=== PATIENT | female | born 1965 | race Caucasian/White ===

== ENCOUNTER 2021-06-26 16:15 | Emergency (ER) | payer OTHER, SELFPAY ==
--- NOTE | ~2021-06-26 | XR_ITS ---
EXAMINATION: XR chest 2V DATE: 06/26/2021 16:48 INDICATION: Weakness and dizziness. TECHNIQUE: Frontal and lateral views of the chest were obtained. COMPARISON: Chest 2 views 03/14/2017 FINDINGS: The chest demonstrates clear lungs without pneumonia, pleural effusion, or pneumothorax. Th e heart size is normal. IMPRESSION: 1. No acute cardiopulmonary disease. Reviewed, dictated and finalized at location A.
--- NOTE | 2021-06-26 16:16 | ECG_ITS ---
Measurements Intervals [place] Rate: 63 P: 66 TN: 137 QRS: 14 QRSD: 89 T: 40 QT: 407 QTc: 418 Interpretive Statements SINUS RHYTHM POSSIBLE LEFT ATRIAL ENLARGEMENT LOW QRS VOLTAGE IN PRECORDIAL LEADS BASELINE ARTIFACT- I, III, AVR, AVL, AVF, V3 BORDERLINE ECG Electronically Signed On 06-26-2021 16:39:44 CDT by Eloy Nguyen D.O.
[2021-06-26 16:33] VITALS: BP 143/85; PULSE 69; RESP 18; TEMP 36.5; O2SAT 100
[2021-06-26 16:38] LABS: Basophils Percent Auto 0.4 % (0.2-1.2); Eosinophils Absolute Auto 0.1 K/mm3 (0-0.3); Eosinophils Percent Auto 1.5 % (0-4.4); Hematocrit 37.7 % (37.0-47.0); Hemoglobin 12.6 g/dL (12.0-15.0); Immature Granulocyte Absolute 0.02 K/mm3 (0.00-0.031); Immature Granulocyte Percent A 0.3 % (0-0.5); Lymphocytes Absolute Auto 2.03 K/mm3 (0.9-3.2); Lymphocytes Percent Auto 28.4 % (18.3-44.2); Mean Corpuscular HGB Conc 33.4 g/dl (32-36); Mean Corpuscular Hemoglobin 30.2 pg (26-34); Mean Corpuscular Volume 90.4 fl (80-100); Mean Platelet Volume 10.9 fl (7.4-10.4); Monocytes Absolute Auto 0.4 K/mm3 (0.1-0.6); Monocytes Percent Auto 6.2 % (2.6-8.5); Neutrophils Absolute Auto 4.5 K/mm3 (1.3-6.7); Neutrophils Percent Auto 63.2 % (45.5-73.1); Platelet Count Result 277 k/mm3 (150-375); Red Blood Count 4.17 M/mm3 (4.2-5.4); Red Cell Distribution Width 11.9 % (11.5-14.5); White Blood Count 7.2 K/mm3 (4.5-10.0)
[2021-06-26 16:50] LABS: Alanine Aminotransferase 27 U/L (4-35); Albumin Level 4.3 g/dL (3.5-5.1); Alkaline Phosphatase 62 U/L (38-126); Anion Gap 7 mmol/L (8-16); Aspartate Amino Transferase 31 U/L (14-36); Bilirubin,Total 0.3 mg/dL (0.2-1.3); Blood Urea Nitrogen 14 mg/dL (7-17); Calcium 9.2 mg/dL (8.4-10.2); Carbon Dioxide 27 mmol/L (22-30); Chloride 102 mmol/L (98-107); Estimated CRCL calculation 65 ml/min; Estimated Glomerular Filt Rate > 60; Glucose 110 mg/dL (65-110); Sodium 136 mmol/L (137-145)
--- NOTE | 2021-06-26 18:26 | PC.NURSE ---
THIS RN INTO PTS ROOM TO START IV. PT STATES SHE DOESNT REALLY WANT AN IV AT THIS TIME. CHARGE NURSE MADE AWARE.
--- NOTE | 2021-06-26 19:29 | ED.DIZZY ---
HPI - Dizziness General Chief Complaint: Dizziness Stated Complaint: weak, dizzy, allergic reaction Time Seen by Provider: 06/26/21 18:45 Source: patient Mode of arrival: ambulatory Limitations: no limitations History of Present Illness HPI Narrative: 56-year-old female He is being treated for perimenopausal symptoms She reports that Effexor was added to combat some anxiety that she was having which she thought was related to another medication which she was taking First dose 4 days ago and very quickly became dizzy nauseated diaphoretic vomited She waited until today to take a second pill and had a very similar experience absent the vomiting This was about 5 hours ago and while she is improved substantially she still feels little out of kilter She does not have any symptoms of a true allergic reaction such as hoarseness or stridor, wheezing, itching, or rash Related Data Home Medications Medication Instructions Recorded Confirmed doxycycline hyclate 100 mg capsule 100 mg PO DAILY 12/29/20 metformin 500 mg tablet 500 mg PO DAILY 12/29/20 Allergies Allergy/AdvReac Type Severity Reaction Status Date / Time Penicillins Allergy Unknown Verified 09/06/20 09:53 [facility] Past Medical History Medical History (Updated 06/26/21 @ 19:33 by Mynor Pierre MD) Fractures Hyperhidrosis Migraine headache Osteoarthritis Pneumonia Vertigo Surgical History Surgical History (System 09/06/20 @ 09:53 by Glory Palacios) History of bunionectomy S/P LASIK surgery of both eyes Family History Family History (System 09/06/20 @ 09:53 by Glory Palacios) Mother Hypertension Family history of heart disease in male family member before age 55, Onset Age: 56 Myocardial infarction Grandparent Family history of lung cancer Family history of heart disease in male family member before age 55 Father Emphysema lung Social History Social History (System 09/06/20 @ 09:53 by Glory Palacios) Smoking status: Never smoker Alcohol intake: current Alcohol use details: rarely Gender identity (if verbalized by the patient): Female Course Vital Signs Vital signs: Vital Signs Temperature 36.5 C 06/26/21 16:33 Pulse Rate 69 06/26/21 16:33 Respiratory Rate 18 06/26/21 16:33 Blood Pressure 143/85 H 06/26/21 16:33 Pulse Oximetry 100 06/26/21 16:33 Temperature 36.5 C 06/26/21 16:33 Pulse Rate 69 06/26/21 16:33 Respiratory Rate 18 06/26/21 16:33 Blood Pressure 143/85 H 06/26/21 16:33 Pulse Oximetry 100 06/26/21 16:33 MDM - Dizziness Lab Data Result diagrams: 06/26/21 16:26 06/26/21 16:26 Labs: Lab Results 06/26/21 06/26/21 Range/Units 16:26 16:26 WBC 7.2 (4.5-10.0) K/mm3 RBC 4.17 L (4.2-5.4) M/mm3 Hgb 12.6 (12.0-15.0) g/dL Hct 37.7 (37.0-47.0) % MCV 90.4 (80-100) fl MCH 30.2 (26-34) pg MCHC 33.4 (32-36) g/dl RDW 11.9 (11.5-14.5) % Plt Count 277 (150-375) k/mm3 MPV 10.9 H (7.4-10.4) fl Immature Gran % (Auto) 0.3 (0-0.5) % Neut % (Auto) 63.2 (45.5-73.1) % Lymph % (Auto) 28.4 (18.3-44.2) % Patrick % (Auto) 6.2 (2.6-8.5) % Eos % (Auto) 1.5 (0-4.4) % Baso % (Auto) 0.4 (0.2-1.2) % Lymph # (Auto) 2.03 (0.9-3.2) K/mm3 Patrick # (Auto) 0.4 (0.1-0.6) K/mm3 Eos # (Auto) 0.1 (0-0.3) K/mm3 Baso # (Auto) 0.0 (0.0-0.1) K/mm3 Abs Immat Gran (auto) 0.02 (0.00-0.031) K/mm3 Absolute Neuts (auto) 4.5 (1.3-6.7) K/mm3 Absolute Nucleated RBC 0.0 (0.0-0.012) K/mm3 Nucleated RBC % 0.0 (0.0-0.2) % Sodium 136 L (137-145) mmol/L Potassium 4.0 (3.4-5.0) mmol/L Chloride 102 (98-107) mmol/L Carbon Dioxide 27 (22-30) mmol/L Anion Gap 7 L (8-16) mmol/L BUN 14 (7-17) mg/dL Creatinine 0.70 (0.7-1.0) mg/dL Estim Creat Clear Calc 65 ml/min Estimated GFR > 60 (59 - ) Glucose 110 (65-110) mg/dL Calcium 9.2 (8.4-10.2) mg/d
[2021-06-26 19:50] VITALS: BP 120/70; PULSE 70; RESP 16; O2SAT 98
== END 2021-06-26 19:50 | disposition home or self-care (01) ==
PROVIDERS: Emergency Medicine; Emergency Provider Emergency Medicine; PCP Internal Medicine
DX: R42 Dizziness and giddiness (principal); T43.215A Adverse effect of selective serotonin and norepinephrine reuptake inhibitors, initial encounter; M19.90 Unspecified osteoarthritis, unspecified site
CPT/HCPCS: 36415; 71046; 80053; 85025; 93005; 99283